=== PATIENT | female | born 1980 | race Caucasian/White ===

== ENCOUNTER 2022-02-09 04:39 | Day surgery (SDC) | payer BC ==
[2022-02-04 10:20] VITALS: BMI 23.8
[2022-02-09 11:02] VITALS: TEMP 97.8
[2022-02-09 11:39] VITALS: BP 100/66; PULSE 59
== END 2022-02-09 11:51 | disposition home or self-care (01) ==
LOC: JASU-ENDO 04:39 → EDBD 11:00 → JASU-ENDO 11:51
PROVIDERS: ATTEND Internal Medicine Gastroenterology
PROC: 0DB68ZX Excision of Stomach, Via Natural or Artificial Opening Endoscopic, Diagnostic (ICD-10-PCS; principal; 2022-02-09 11:00)
DX: K29.50 Unspecified chronic gastritis without bleeding (principal)
CPT/HCPCS: 88305-TC; 88342-TC